=== PATIENT | female | born 1990 | race Caucasian/White ===

== ENCOUNTER 2020-06-19 17:16 | Emergency (ER) | payer SELFPAY ==
[~2020-06-19] VITALS: Ht 152.4 cm; Wt 72.6 kg
[2020-06-19 17:17] VITALS: BP 126/80
== END 2020-06-19 17:39 ==
LOC: MED 17:16
DX: F29 Unspecified psychosis not due to a substance or known physiological condition (principal); R00.0 Tachycardia, unspecified; Z71.6 Tobacco abuse counseling
CPT/HCPCS: 99283